=== PATIENT | female | born 1960 | race Caucasian/White ===

== ENCOUNTER 2019-01-13 17:51 | Emergency (ER) | payer SELFPAY ==
[~2019-01-13] VITALS: Ht 157.5 cm; Wt 72.7 kg
[2019-01-13 18:08] VITALS: BP 142/85
== END 2019-01-13 18:55 | disposition left against medical advice (07) ==
LOC: EMS 17:53
DX: F41.9 Anxiety disorder, unspecified (principal); Z53.21 Procedure and treatment not carried out due to patient leaving prior to being seen by health care provider